=== PATIENT | female | born 2000 | race Caucasian/White ===

== ENCOUNTER 2023-07-24 14:20 | Emergency (ER) | payer SELFPAY ==
[2023-07-24 15:14] LABS: #Basophils 0.1 thou/uL (0.0-0.2); #Eosinphils 0.4 thou/uL (0.0-0.7); #Monocytes 0.5 thou/uL (0.11-0.59); #Neutrophils 7.8 thou/uL (1.40-6.50); %Basophils 0.5 % (0.0-1.0); %Eosinophils 3.5 % (0.0-10.0); %Lymphocytes 25.8 % (21.0-51.0); %Monocytes 4.5 % (0.0-10.0); %Neutrophils 65.4 % (42.0-75.0); Hemoglobin 12.7 g/dL (12.0-16.0); Mean Corpuscular HGB CONC 31.8 g/dL (32.0-36.0); Mean Corpuscular Hemoglobin 24.7 pg (27.0-31.0); Mean Corpuscular Volume 77.7 fl (78.0-98.0); Mean Platelet Volume 8.8 fL (7.4-10.4); Platelet Count 420 10x3/uL (130-400); RBC Distribution Width 14.7 % (11.5-14.5); Red Blood Cell (RBC) Count 5.15 mill/uL (4.20-5.40); White Blood Cell (WBC) Count 11.9 10x3/uL (4.8-10.8)
[2023-07-24 15:47] LABS: ALT (SGPT) 15 U/L (8-55); AST (SGOT) 22 U/L (5-34); Albumin 3.8 g/dL (3.5-5.0); Alkaline Phosphatase 106 U/L (40-110); Anion Gap 14 mmol/L (10-20); BUN (Urea Nitrogen) 11 mg/dL (7.0-18.7); Bilirubin, Total 0.5 mg/dL (0.2-1.2); Calc. Creatinine Clearance 0 mL/min (70-130); Calcium 9.5 mg/dL (7.8-10.44); Carbon Dioxide 21 mmol/L (22-29); Chloride 104 mmol/L (98-107); Estimated GFR 111; Globulin 4.3 g/dL (2.4-3.5); Glucose 88 mg/dL (70-105); Lipase 11 U/L (8-78); Potassium 4.7 mmol/L (3.5-5.1); Protein, Total 8.1 g/dL (6.0-8.3); Sodium 134 mmol/L (136-145)
[2023-07-24 16:09] LABS: BHCG - Serum Negative (NEGATIVE); Pregs Control Background? CLEAR/WHITE (CLR/WHITE); Pregs Control Bar Appear? YES (CONTROL BAR)
[2023-07-24 16:30] LABS: Bacteria/HPF 1+ HPF (None Seen); Bilirubin Negative (Negative); Blood, Urine Negative (Negative); CAUTI Indications for Culture Dysuria,urgency,freq; Clarity Turbid (Clear); Glucose, Urine (Dipstick) Normal (Negative); Ketone, Urine Negative (Negative); Leukocyte 500 Leu/uL (Negative); Nitrite Negative (Negative); Protein, Urine (Dipstick) 10 mg/dL (Neg-Trace); RBC/HPF 0-3 HPF (0-3); Specific Gravity, Urine 1.025 (1.002-1.036); Urobilinogen Normal mg/dL (Less than 2); WBC/HPF 21-50 HPF (0-3); pH, Urine 5.5 (5.0-9.0)
[2023-07-24 16:32] LABS: Urine Culture Reflex Yes Yes
== END 2023-07-24 17:08 | disposition home or self-care (01) ==
LOC: ERS 14:20
DX: R42 Dizziness and giddiness (principal); F17.290 Nicotine dependence, other tobacco product, uncomplicated
CPT/HCPCS: 36415; 80053; 81001; 83690; 84703; 85025; 87086; 93005

== ENCOUNTER 2023-09-03 14:28 | Emergency (ER) | payer SELFPAY ==
[2023-09-03 16:09] LABS: SARS-CoV-2 NAA Rapid Test Not Detected (NotDetected)
== END 2023-09-03 16:31 | disposition home or self-care (01) ==
LOC: ERS 14:28
DX: J11.1 Influenza due to unidentified influenza virus with other respiratory manifestations (principal); F17.290 Nicotine dependence, other tobacco product, uncomplicated
CPT/HCPCS: 99283

== ENCOUNTER 2023-11-18 15:19 | Emergency (ER) | payer SELFPAY ==
[2023-11-18] MEDS ORDERED: Ibuprofen 800 MG TAB ONE (15:41)
[2023-11-18] MEDS ORDERED: Dexamethasone 4 MG TAB ONE (15:41)
== END 2023-11-18 16:43 | disposition home or self-care (01) ==
LOC: ERS 15:19
DX: J04.0 Acute laryngitis (principal); J02.9 Acute pharyngitis, unspecified; F17.290 Nicotine dependence, other tobacco product, uncomplicated
CPT/HCPCS: 87081; 87430; 99283; J8540

== ENCOUNTER 2025-05-18 22:32 | Emergency (ER) | payer OTHER ==
[2025-05-19 00:42] LABS: #Basophils 0.07 10x3/uL (0.0-0.2); #Eosinophils 0.60 10x3/uL (0.0-0.7); #Monocytes 0.63 10x3/uL (0.11-0.59); #Neutrophils 12.26 10x3/uL (1.40-6.50); %Basophils 0.4 % (0.0-1.0); %Eosinophils 3.8 % (0.0-10.0); %Lymphocytes 14.0 % (21.0-51.0); %Monocytes 4.0 % (0.0-10.0); %Neutrophils 77.5 % (42.0-75.0); Hematocrit 39.4 % (36.0-47.0); Hemoglobin 12.3 g/dL (12.0-16.0); Mean Corpuscular Hemoglobin 23.9 pg (27.0-31.0); Mean Corpuscular Volume 76.7 fL (78.0-98.0); Platelet Count 366 10x3/uL (130-400); Red Blood Cell (RBC) Count 5.14 mill/uL (4.20-5.40); White Blood Cell (WBC) Count 15.82 10x3/uL (4.8-10.8)
[2025-05-19 00:58] LABS: ALT (SGPT) 17 U/L (Less than 34); AST (SGOT) 18 U/L (11-34); Albumin 3.6 g/dL (3.1-4.5); Alkaline Phosphatase 108 U/L (40-110); Anion Gap 15 mmol/L (10-20); BUN (Urea Nitrogen) 10 mg/dL (7.0-18.7); Bilirubin, Total 0.5 mg/dL (0.3-1.2); Calc. Creatinine Clearance 0 mL/min (70-130); Calcium 9.5 mg/dL (7.8-10.44); Carbon Dioxide 23 mmol/L (22-29); Chloride 103 mmol/L (98-107); Globulin 4.2 g/dL (2.4-3.5); Glucose 101 mg/dL (70-105); Potassium 3.8 mmol/L (3.5-5.1); Sodium 137 mmol/L (136-145)
[2025-05-19] MEDS ORDERED: Ondansetron PF 4 MG/2 ML Vial ONE (01:02)
[2025-05-19 01:13] LABS: BHCG - Serum Negative (NEGATIVE); Pregs Control Background? CLEAR/WHITE (CLR/WHITE); Pregs Control Bar Appear? YES (CONTROL BAR)
[2025-05-19] MEDS ORDERED: Ketorolac Tromethamine 30 MG (1 mL) VIAL ONE (01:53)
[2025-05-19 02:26] LABS: Bacteria/HPF None Seen HPF (None Seen); CAUTI Indications for Culture Pelvic or flank pain; Glucose, Urine (Dipstick) Normal (Negative); Leukocyte Negative Leu/uL (Negative); Protein, Urine (Dipstick) Negative (Neg-Trace); RBC/HPF 0-3 HPF (0-3); Specific Gravity, Urine 1.029 (1.002-1.036); WBC/HPF 0-3 HPF (0-3)
[2025-05-19 02:38] LABS: Urine Culture Reflex No No
== END 2025-05-19 02:55 | disposition home or self-care (01) ==
LOC: ERS 22:32
DX: R11.2 Nausea with vomiting, unspecified (principal); R19.7 Diarrhea, unspecified; F17.290 Nicotine dependence, other tobacco product, uncomplicated
CPT/HCPCS: 36415; 80053; 81001; 84703; 85025; 87081; 87428; 87430; 96374; 96375; J1885; J2405

== ENCOUNTER 2025-07-01 07:18 | Emergency (ER) | payer OTHER | END 2025-07-01 08:34 | disposition home or self-care (01) | LOC: ERS 07:18 | DX: S93.401A Sprain of unspecified ligament of right ankle, initial encounter (principal); X50.1XXA Overexertion from prolonged static or awkward postures, initial encounter | CPT/HCPCS: 99283 ==